=== PATIENT | female | born 1955 | race Caucasian/White ===

== ENCOUNTER 2021-12-13 08:54 | Day surgery (SDC) | payer MEDICARE ==
[~2021-12-13] VITALS: Ht 188 cm; Wt 90.5 kg
[2021-12-13] MEDS ORDERED: ATOR40TA PO (09:52)
[2021-12-13] MEDS ORDERED: ESCI10 PO (09:53)
[2021-12-13] MEDS ORDERED: LEVOTHYROXINE50 MC8 PO (09:53)
[2021-12-13] MEDS ORDERED: LOSA50 PO (09:54)
[2021-12-13] MEDS ORDERED: LORA10ER PO (09:54)
[2021-12-13] MEDS ORDERED: TRAM50 PO (09:55)
--- NOTE | 2021-12-13 10:12 | NUR ---
Ambulatory in Day Surgery History, Chart, Medications and Allergies reviewed before start of procedure. Lungs clear T/O to Auscultation. Pre-Op teaching done. Pt verbalizes understanding. Patient States Post-Procedure ride home has been arranged.
--- NOTE | 2021-12-13 10:37 | NUR ---
12/13/21 iCndy Salazar History, Chart, Medications and Allergies reviewed before start of procedure.HISTORY, CHART, MEDICATIONS AND ALLERGIES REVIEWED BEFORE START OF PROCEDURE. PATIENT CONFIRMS NPO STATUS AND AGREES WITH SCHEDULED PROCEDURE. 3-LEAD EKG REVIEWED WITH PHYSICIAN PRIOR TO START OF PROCEDURE. MONITOR INTACT WITH CONTINUOUS PULSE OXIMETRY,CAPNOGRAPHY, 3-LEAD EKG, INTERMITTENT BP. SUPPLEMENTAL O2 TO BE TITRATED THROUGHOUT PROCEDURE TO MAINTAIN O2 SATURATION ABOVE 90%. PATIENT DETERMINED TO BE ASA APPROPRIATE FOR PROPOFOL SEDATION PRIOR TO START OF PROCEDURE BY DR. EL
--- NOTE | 2021-12-13 12:01 | NUR ---
Discharge instructions reviewed with patient. Patient verbalizes understanding. Copy given to patient to take home. Discharged via wheelchair to private car for ride home.
== END 2021-12-13 12:03 | disposition home or self-care (01) ==
LOC: ORSCMMR 08:54 → ORD 10:45 → ORSCMMR 12:03
PROVIDERS: Internal Medicine Gastroenterology
PROC: 0DBH8ZX Excision of Cecum, Via Natural or Artificial Opening Endoscopic, Diagnostic (ICD-10-PCS; principal; 2021-12-13 10:45)
PROC: 0DBK8ZX Excision of Ascending Colon, Via Natural or Artificial Opening Endoscopic, Diagnostic (ICD-10-PCS; principal; 2021-12-13 10:45)
DX: Z12.11 Encounter for screening for malignant neoplasm of colon (principal); D12.0 Benign neoplasm of cecum; D12.2 Benign neoplasm of ascending colon; K57.30 Diverticulosis of large intestine without perforation or abscess without bleeding; Z87.891 Personal history of nicotine dependence; Z79.899 Other long term (current) drug therapy
CPT/HCPCS: 88305; J2704; J7120

== ENCOUNTER → 2023-07-22 | Outpatient (CLI) | payer MEDICARE, OTHER ==
[~2023-07-22] MED LIST: ATOR40TA PO; ESCI10 PO; LEVOTHYROXINE50 MC8 PO; LORA10ER PO; LOSA50 PO; TRAM50 PO
== END ==
LOC: LAB 14:25 → LAB SHORT 14:25
DX: R30.0 Dysuria (principal)
CPT/HCPCS: 87086

== ENCOUNTER 2023-12-31 12:49 | Day surgery (SDC) | payer MEDICARE ==
[~2023-12-31] VITALS: Ht 180.3 cm; Wt 98.7 kg
[~2023-12-31 12:49] MED LIST changes: +Lactated Ringer's 1,000 ML IV ONE; +Lidocaine 2% 5 ML SDV ONE; +Lidocaine HCl/Pf 1% 5 ML VIAL ONE
[2023-12-31] MEDS ORDERED: ANORO ELLIPTA1 EAC1 (13:04)
[2023-12-31] MEDS ORDERED: GABA100 (13:08)
[2023-12-31] MEDS ORDERED: EUTHYROX50 MC1 (13:09)
[2023-12-31] MEDS ORDERED: BUSPIRONE HCL10 M6 (13:10)
[2023-12-31] MEDS ORDERED: Cyclobenzaprine5 MG (13:10)
[2023-12-31] MEDS ORDERED: HYDROCODONE-AC1 EA19 (13:10)
[2023-12-31] MEDS ORDERED: XANAX0.25 MG (13:10)
[2023-12-31] MEDS ORDERED: OMEP20ER (13:11)
[2023-12-31] MEDS ORDERED: ALBU90OI (13:12)
[2023-12-31] MEDS ORDERED: Acetaminophen650 M1 (13:12)
[2023-12-31] MEDS ORDERED: Lactated Ringer's 1,000 ML IV ONE (13:52)
--- NOTE | 2023-12-31 14:21 | NUR ---
12/31/23 1421 Danika Patton WAITING FOR ANESTHESIA, CASE DELAYED. PT NOTIFIED OF DELAY. CALL LIGHT IN REACH. PT AMBULATED TO RESTROOM WITH WALKER. WARM BLANKETS PROVIDED.
[2023-12-31] MEDS ORDERED: propofoL 50 ML IV ONE (14:58)
[2023-12-31 16:02] VITALS: BP 112/68
== END 2023-12-31 16:05 | disposition home or self-care (01) ==
LOC: ORSCSDS 12:49
PROVIDERS: Surgery
PROC: 0DBL8ZX Excision of Transverse Colon, Via Natural or Artificial Opening Endoscopic, Diagnostic (ICD-10-PCS; principal; 2023-12-31 14:00)
PROC: 0DBH8ZX Excision of Cecum, Via Natural or Artificial Opening Endoscopic, Diagnostic (ICD-10-PCS; principal; 2023-12-31 14:00)
PROC: 0DB78ZX Excision of Stomach, Pylorus, Via Natural or Artificial Opening Endoscopic, Diagnostic (ICD-10-PCS; principal; 2023-12-31 14:00)
DX: K92.1 Melena (principal); K21.9 Gastro-esophageal reflux disease without esophagitis; R10.84 Generalized abdominal pain; Z86.010 Personal history of colon polyps; K29.70 Gastritis, unspecified, without bleeding; D12.0 Benign neoplasm of cecum; K63.5 Polyp of colon; K44.9 Diaphragmatic hernia without obstruction or gangrene; K57.30 Diverticulosis of large intestine without perforation or abscess without bleeding; K64.8 Other hemorrhoids; E03.9 Hypothyroidism, unspecified; I10 Essential (primary) hypertension; Z85.118 Personal history of other malignant neoplasm of bronchus and lung; Z79.899 Other long term (current) drug therapy; Z87.891 Personal history of nicotine dependence
CPT/HCPCS: 88305; 88342; J2001; J2704; J7120

== ENCOUNTER → 2024-05-19 | Outpatient (CLI) | payer MEDICARE, OTHER ==
[~2024-05-19] MED LIST changes: +ALBU90OI; +ANORO ELLIPTA1 EAC1; +Acetaminophen650 M1; +BUSPIRONE HCL10 M6; +Cyclobenzaprine5 MG; +EUTHYROX50 MC1; +GABA100; +HYDROCODONE-AC1 EA19; -Lactated Ringer's 1,000 ML IV ONE; -Lidocaine 2% 5 ML SDV ONE; -Lidocaine HCl/Pf 1% 5 ML VIAL ONE; +OMEP20ER; +XANAX0.25 MG
== END ==
LOC: LAB 18:01 → LAB SHORT 18:01
DX: R30.0 Dysuria (principal)
CPT/HCPCS: 87086